=== PATIENT | female | born 1970 | race Native Hawaiian/Other Pacific Islander ===

== ENCOUNTER 2020-09-28 07:49 | Outpatient (CLI) | payer BC | END 2020-09-28 18:55 | disposition home or self-care (01) | LOC: US 07:49 → EDBD 08:00 → US 18:55 | PROVIDERS: ATTEND Family Medicine | DX: K82.9 Disease of gallbladder, unspecified (principal) ==

== ENCOUNTER 2022-01-03 09:36 | Outpatient (CLI) | payer BC | END 2022-01-03 18:56 | disposition home or self-care (01) | LOC: US 09:36 | PROVIDERS: ATTEND Nurse Practitioner Primary Care | DX: R10.11 Right upper quadrant pain (principal) ==